=== PATIENT | female | born 1940 | race Caucasian/White ===

== ENCOUNTER → 2017-02-07 | Emergency (ER) | payer OTHER ==
[~2017-02-07] VITALS: Ht 170.2 cm; Wt 74.8 kg
[~2017-02-07] MED LIST: ADVAIR HFA 115/12 GM
== END | disposition home or self-care (01) ==
LOC: ER 16:04
DX: J11.1 Influenza due to unidentified influenza virus with other respiratory manifestations (principal); J45.998 Other asthma